=== PATIENT | male | born 1995 | race Caucasian/White ===

== ENCOUNTER 2017-04-28 01:30 | Emergency (ER) | payer OTHER, MEDICAID ==
--- NOTE | 2017-04-28 01:33 | EDPHY ---
H & P Source: Patient, Family - Medical/Surgical History Hx Asthma: No Hx Chronic Respiratory Disease: No Hx Diabetes: No Hx Cardiac Disease: No Hx Renal Disease: No Hx Cirrhosis: No Hx Alcoholism: No Hx HIV/AIDS: No Hx Splenectomy or Spleen Trauma: No Other PMH: eating disorder/panic/depression - Social History Smoking Status: Never smoked HPI/ROS: HPI CHIEF COMPLAINT: Acute psychosis HISTORY OF PRESENT ILLNESS: This patient is a 21-year-old male, presents emergency room with acute psychosis. Brought in by private vehicle with his mom. For approximately 7-10 days he has been having a retic behavior pressured speech the been following up with [facility] outpatient. He did get his Invega shot this month. He presents emergency room acutely psychotic. He is running around naked with a golf club. Mom consent come into the emergency room tonight. He appears disorganized pressured speech and tangential thoughts. Past Medical History: Multiple psychiatric diagnoses including schizophrenia, depression, kayla Past Surgical History: No recent surgery Social History: Mom reports no drugs alcohol tobacco. Family History: Noncontributory. ROS REVIEW OF SYSTEMS: A comprehensive 10 point review of systems is otherwise negative aside from elements mentioned in the history of present illness. Exam Constitutional psychotic triage nursing summary reviewed, vital signs reviewed , awake/alert. Eyes normal conjunctivae and sclera, EOMI, PERRLA. HENT normal inspection, atraumatic, moist mucus membranes, no epistaxis, neck supple/ no meningismus, no raccoon eyes. Respiratory clear to auscultation bilaterally, normal breath sounds, no respiratory distress, no wheezing. Cardiovascular rate normal, regular rhythm, no murmur, no edema, distal pulses normal. Gastrointestinal soft, non-tender, no rebound, no guarding, normal bowel sounds, no distension, no pulsatile mass. Genitourinary no CVA tenderness. Musculoskeletal no midline vertebral tenderness, full range of motion, no calf swelling, no tenderness of extremities, no meningismus, good pulses, neurovascularly intact. Skin pink, warm, & dry, no rash, skin atraumatic. Neurologic awake, alert and oriented x 3, AAOx3, moves all 4 extremities equally, motor intact, sensory intact, CN II-XII intact, normal cerebellar, normal vision, normal speech. Psychiatric acutely psychotic, pressured speech, random movements. Heme/Lymph/Immune no lymphadenopathy. Differential Diagnosis: Includes but is not limited to in a particular order acute psychosis, kayla, bipolar, depression, drug intoxication Medical Decision Making: Plan for this patient blood draw for medical clearance. Patient be placed on M1 hold. Patient need mental health evaluation. Zyprexa 5 mg IM has been ordered. Re-evaluation: 0326AM: Patient is medically cleared. Needs mental health evaluation. Patient on M1 hold. Reason for M1 hold acute psychosis. 0552AM: Patient is sleeping. No acute events overnight. Patient pending mental health evaluation. Patient signed over to Dr. Gurrola at 7:00 a.m. shift change. (Cuauhtemoc Lock) Constitutional: Initial Vital Signs Temperature (C) 36.4 C 04/28/17 01:48 Heart Rate 112 H 04/28/17 01:48 Respiratory Rate 18 04/28/17 01:48 Blood Pressure 154/89 H 04/28/17 01:48 O2 Sat (%) 98 04/28/17 01:48 O2 Delivery Mode Room Air Allergies/Adverse Reactions: No Known Allergies Allergy (Verified 04/28/17 02:13) Home Medications: Medication Instructions Recorded Buspar (*) 04/28/17 INVEGA SUSTENNA 04/28/17 Medical Decision Making ED Course/Re-evaluation: 7:00 a.m.-I assumed care of this patient at shift change. He presents with acute psychosis. He received IM Zyprexa and has been too drowsy to have a mental health evaluation. 2:00 p.m.-mental health evaluation complete. Mental health is looking for inpatient disposition. 3:00 p.m.-signed over to Dr. Ramesh at shift change. (Ele Gurrola) Other Provider: Care assumed from Dr. Gurrola at 1500 with plan for psychiatric evaluation which is pending. Apparently was sleepy after his antipsychotic, they will re- evaluate. 2119: The patient will be transferred to [facility] for inpatient psychiatric hospital bed not available at this facility, in stable condition; accepting physician is Dr. Smith. (Jeyson Ramesh) - Data Points Laboratory Results: Laboratory Results 04/28/17 02:10 04/28/17 02:10 Medications Given: Discontinued Medications Olanzapine (Zyprexa Im Injection) 5 mg IM EDNOW ONE Stop: 04/28/17 01:37 Last Admin: 04/28/17 02:04 Dose: 5 mg Departure - Departure Disposition: Other Psych, Not Lilly Clinical Impression: Psychosis Qualifiers: Psychosis type: other Qualified Code(s): F28 - Other psychotic disorder not due to a substance or known physiological condition Condition: Fair Referrals: NONE *PRIMARY CARE P,. [Primary Care Provider] - As per Instructions
[2017-04-28] MEDS ORDERED: OLANZapine 10 MG/2 ML VIAL IM ONE ×2 (01:36)
[2017-04-28 02:18] LABS: PLATELET COUNT 181 10^3/uL (150-400)
[2017-04-28 02:57] VITALS: RESP 16
[2017-04-28 22:01] VITALS: BP 119/72; PULSE 102; TEMP 98.4; O2SAT 96
== END 2017-04-28 22:51 ==
DX: F28 Other psychotic disorder not due to a substance or known physiological condition (principal)
CPT/HCPCS: 80305; G0480